=== PATIENT | male | born 1995 | race Two or more races ===

== ENCOUNTER 2025-01-17 19:48 | Emergency (ER) | payer MEDICAID ==
[~2025-01-17] VITALS: Ht 177.8 cm; Wt 81.8 kg
[2025-01-17 20:12] VITALS: BP 103/68; PULSE 102; RESP 18; TEMP 98.1; O2SAT 100
== END 2025-01-17 23:30 | disposition left against medical advice (07) ==
LOC: EMS 19:48
DX: S01.511A Laceration without foreign body of lip, initial encounter (principal); H57.12 Ocular pain, left eye; K08.89 Other specified disorders of teeth and supporting structures; Z53.21 Procedure and treatment not carried out due to patient leaving prior to being seen by health care provider; X58.XXXA Exposure to other specified factors, initial encounter; Y93.89 Activity, other specified; Y92.89 Other specified places as the place of occurrence of the external cause; Y99.8 Other external cause status